=== PATIENT | male | born 2000 | race Caucasian/White ===

== ENCOUNTER 2021-04-06 18:18 | Emergency (ER) | payer OTHER ==
[~2021-04-06] VITALS: Ht 165.1 cm; Wt 65.8 kg
[~2021-04-06 18:18] MED LIST: AMOXICILLIN500 M1 PO; FEVERALL120 MG; IBUPROFEN 400400 M2 PO; KEFLEX250 M1 PO; NOHOMEMEDICATIONS
[2021-04-06] MEDS ORDERED: BACTRIM DS TAB1 EACH PO ×2 (19:25→19:52)
[2021-04-06 20:06] VITALS: BP 135/65
== END 2021-04-06 19:52 | disposition home or self-care (01) ==
LOC: M.ERS 18:18
DX: S31.000A Unspecified open wound of lower back and pelvis without penetration into retroperitoneum, initial encounter (principal); L02.212 Cutaneous abscess of back [any part, except buttock and flank]; Z77.22 Contact with and (suspected) exposure to environmental tobacco smoke (acute) (chronic); W57.XXXA Bitten or stung by nonvenomous insect and other nonvenomous arthropods, initial encounter; Y93.89 Activity, other specified; Y92.89 Other specified places as the place of occurrence of the external cause; Y99.8 Other external cause status